=== PATIENT | female | born 1985 | race Caucasian/White ===

== ENCOUNTER 2019-06-03 08:11 | Emergency (ER) | payer OTHER ==
[~2019-06-03] VITALS: Ht 157.5 cm; Wt 59.4 kg
== END 2019-06-03 17:22 | disposition home or self-care (01) ==
LOC: ER 08:11
DX: K62.5 Hemorrhage of anus and rectum (principal)

== ENCOUNTER 2019-10-21 08:15 | Emergency (ER) | payer OTHER ==
[~2019-10-21] VITALS: Ht 157.5 cm; Wt 54.9 kg
[2019-10-21] MEDS ORDERED: CONCEPT DHA CA1 EACH PO (12:17)
== END 2019-10-21 12:45 | disposition home or self-care (01) ==
LOC: ER 08:15
DX: O20.0 Threatened abortion (principal); O36.80X1 Pregnancy with inconclusive fetal viability, fetus 1

== ENCOUNTER 2019-10-23 07:57 | Outpatient (CLI) | payer OTHER ==
[~2019-10-23 07:57] MED LIST: CONCEPT DHA CA1 EACH PO
== END 2019-10-23 16:38 | disposition home or self-care (01) ==
LOC: LAB 07:57
DX: Z00.00 Encounter for general adult medical examination without abnormal findings (principal)

== ENCOUNTER 2023-02-21 09:58 | Outpatient (CLI) | payer OTHER ==
[~2023-02-21 09:58] MED LIST changes: +FOLIC ACID0.8 M1 PO; +VITAL-D RX TAB1 EACH PO
== END 2023-02-21 11:25 | disposition home or self-care (01) ==
LOC: PRENATAL 09:58
PROVIDERS: ATTEND Obstetrics & Gynecology Maternal & Fetal Medicine
DX: O36.80X0 Pregnancy with inconclusive fetal viability, not applicable or unspecified (principal); O09.529 Supervision of elderly multigravida, unspecified trimester; O34.219 Maternal care for unspecified type scar from previous cesarean delivery; Z3A.11 11 weeks gestation of pregnancy

== ENCOUNTER 2023-04-24 08:09 | Outpatient (CLI) | payer OTHER | END 2023-04-24 10:31 | disposition home or self-care (01) | LOC: PRENATAL 08:09 | PROVIDERS: ATTEND Obstetrics & Gynecology Maternal & Fetal Medicine | DX: O35.3XX0 Maternal care for (suspected) damage to fetus from viral disease in mother, not applicable or unspecified (principal); O09.529 Supervision of elderly multigravida, unspecified trimester; O99.891 Other specified diseases and conditions complicating pregnancy; O34.219 Maternal care for unspecified type scar from previous cesarean delivery; Z14.8 Genetic carrier of other disease; O44.00 Complete placenta previa NOS or without hemorrhage, unspecified trimester; Z3A.20 20 weeks gestation of pregnancy ==

== ENCOUNTER 2023-05-30 07:18 | Outpatient (CLI) | payer OTHER | END 2023-05-30 07:36 | disposition home or self-care (01) | LOC: LAB 07:18 | PROVIDERS: ATTEND Internal Medicine Hematology & Oncology | DX: D50.8 Other iron deficiency anemias (principal); I10 Essential (primary) hypertension; R74.02 Elevation of levels of lactic acid dehydrogenase [LDH]; K76.89 Other specified diseases of liver; D51.8 Other vitamin B12 deficiency anemias; D68.8 Other specified coagulation defects; D69.1 Qualitative platelet defects; D68.00 Von Willebrand disease, unspecified; D66 Hereditary factor VIII deficiency; D68.01 Von Willebrand disease, type 1; D51.3 Other dietary vitamin B12 deficiency anemia ==

== ENCOUNTER 2023-08-02 08:25 | Outpatient (CLI) | payer OTHER | END 2023-08-02 08:49 | disposition home or self-care (01) | LOC: PRENATAL 08:25 | PROVIDERS: ATTEND Obstetrics & Gynecology Maternal & Fetal Medicine | DX: O26.849 Uterine size-date discrepancy, unspecified trimester (principal); O09.529 Supervision of elderly multigravida, unspecified trimester; O99.891 Other specified diseases and conditions complicating pregnancy; O34.219 Maternal care for unspecified type scar from previous cesarean delivery; O36.8199 Decreased fetal movements, unspecified trimester, other fetus; O40.1XX0 Polyhydramnios, first trimester, not applicable or unspecified; O99.019 Anemia complicating pregnancy, unspecified trimester; Z3A.34 34 weeks gestation of pregnancy ==

== ENCOUNTER 2023-08-22 14:31 | Outpatient (CLI) | payer OTHER | END 2023-08-22 14:32 | disposition home or self-care (01) | LOC: PRENATAL 14:31 | PROVIDERS: ATTEND Obstetrics & Gynecology Maternal & Fetal Medicine | DX: O26.849 Uterine size-date discrepancy, unspecified trimester (principal); O36.8199 Decreased fetal movements, unspecified trimester, other fetus; O09.529 Supervision of elderly multigravida, unspecified trimester; O99.891 Other specified diseases and conditions complicating pregnancy; O34.219 Maternal care for unspecified type scar from previous cesarean delivery; O40.1XX0 Polyhydramnios, first trimester, not applicable or unspecified; O99.019 Anemia complicating pregnancy, unspecified trimester; Z3A.37 37 weeks gestation of pregnancy ==

== ENCOUNTER 2023-11-01 08:25 | Outpatient (CLI) | payer OTHER ==
[2023-11-01 09:28] LABS: HEMATOCRIT 38.4 % (36.0-45.00); HEMOGLOBIN 12.9 g/dL (12.0-15.00); MEAN CELL VOLUME 88.5 fL (80.00-100.00); MEAN CORPUSCULAR HEMOGLOBIN 29.8 pg (27.00-32.0); MEAN CORPUSCULAR HGB CONC 33.7 g/dl (32.0-36.0); PLATELET COUNT 299 K/uL (150-450); RED BLOOD COUNT 4.34 M/uL (4.00-6.00); RED CELL DISTRIBUTION WIDTH 14.8 % (11.5-14.5)
[2023-11-01 09:58] LABS: % SATURACION 38.5 % (15-50); ALBUMIN 3.9 gm/dL (3.4-5.0); BILIRUBIN TOTAL 1.09 mg/dL (0.3-1.2); CREATININE SERUM 0.69 mg/dL (0.55-1.02); FERRITIN 24.6 NG/ML (8-252); GFR 95.22; GLOBULINA 3.4 G/DL (2.4-3.5); POTASSIUM 3.77 mEq/L (3.5-5.1); TOTAL PROTEIN 7.3 gm/dL (6.4-8.2)
[2023-11-01 10:08] LABS: INR 1.09; PARTIAL THROMBOPLASTIN TIME 28.7 SECONDS (22.0-34.0); PROTHROMBIN TIME 11.4 SECONDS (9.0-11.5)
[2023-11-01 10:15] LABS: FOLIC ACID > 20.00 ng/ml (4.78-20)
[2023-11-01 10:44] LABS: COL EPI 150 SECONDS (82-175)
[2023-11-02 10:08] LABS: TRANSFERIN 221 mg/dL (192-364)
== END 2023-11-01 08:26 | disposition home or self-care (01) ==
LOC: LAB 08:25
PROVIDERS: ATTEND Internal Medicine Hematology & Oncology
DX: D68.1 Hereditary factor XI deficiency (principal); D51.3 Other dietary vitamin B12 deficiency anemia; O00.01 Abdominal pregnancy with intrauterine pregnancy; D50.8 Other iron deficiency anemias; K76.89 Other specified diseases of liver; D51.1 Vitamin B12 deficiency anemia due to selective vitamin B12 malabsorption with proteinuria

== ENCOUNTER 2024-09-25 09:15 | Outpatient (CLI) | payer OTHER ==
[2024-09-25 10:10] LABS: HEMATOCRIT 38.4 % (36.0-45.00); HEMOGLOBIN 12.9 g/dL (12.0-15.00); MEAN CELL VOLUME 90.5 fL (80.00-100.00); MEAN CORPUSCULAR HEMOGLOBIN 30.3 pg (27.00-32.0); MEAN CORPUSCULAR HGB CONC 33.4 g/dl (32.0-36.0); PLATELET COUNT 351 K/uL (150-450); RED BLOOD COUNT 4.25 M/uL (4.00-6.00); RED CELL DISTRIBUTION WIDTH 13.2 % (11.5-14.5)
[2024-09-25 10:30] LABS: INR 1.03; PARTIAL THROMBOPLASTIN TIME 27.3 SECONDS (22.0-34.0); PROTHROMBIN TIME 11.2 SECONDS (9.0-11.5)
[2024-09-25 10:49] LABS: COL EPI 80 SECONDS (82-175)
[2024-09-25 11:07] LABS: % SATURACION 28.9 % (15-50); BILIRUBIN TOTAL 0.83 mg/dL (0.3-1.2); CREATININE SERUM 0.65 mg/dL (0.55-1.02); FERRITIN 14.3 NG/ML (8-252); GFR 101.47; GLOBULINA 3.3 G/DL (2.4-3.5); POTASSIUM 4.28 mEq/L (3.5-5.1); T4 FREE 0.96 NG/ML (0.76-1.46); TOTAL PROTEIN 7.3 gm/dL (6.4-8.2); TSH 0.789 uIU/mL (0.358-3.74)
[2024-09-25 11:45] LABS: FOLIC ACID 19.55 ng/ml (4.78-20); VITAMIN D3 25 HYDROXY 18.27 ng/ml (30-120)
== END 2024-09-25 09:27 | disposition home or self-care (01) ==
LOC: LAB 09:15
PROVIDERS: ATTEND Internal Medicine Hematology & Oncology
DX: D68.01 Von Willebrand disease, type 1 (principal); D50.8 Other iron deficiency anemias; I10 Essential (primary) hypertension; R74.02 Elevation of levels of lactic acid dehydrogenase [LDH]; K76.89 Other specified diseases of liver; E55.9 Vitamin D deficiency, unspecified; E03.8 Other specified hypothyroidism; D68.8 Other specified coagulation defects; D69.1 Qualitative platelet defects; D51.3 Other dietary vitamin B12 deficiency anemia

== ENCOUNTER → 2025-05-30 10:23 | Outpatient (CLI) | payer OTHER ==
[2025-05-30 11:18] LABS: BASO % 0.7 % (0.1-1.2); EOS # 0.10 (0.04-0.54); EOS % 1.4 % (0.7-7.0); LYMPH # 2.06 (1.18-3.74); LYMPH % 29.4 % (19.3-53.1); MEAN PLATELET VOLUME 9.80 fl (9.4-12.4); MONO # 0.37 (0.24-0.82); MONO % 5.3 % (4.7-12.5); NEUT # 4.41 (1.56-6.13); NEUT % 62.9 % (34.0-71.1); RED CELL DISTRIBUTION WIDTH 12.2 % (11.6-14.4)
[2025-05-30 11:39] LABS: INR 1.01
[2025-05-30 12:08] LABS: % SATURACION 17.1 % (15-50); ALT/SGPT 15.0 U/L (12-78); AST/SGOT 9.0 U/L (15-37); BILIRUBIN TOTAL 0.59 mg/dL (0.3-1.2); BUN CREA RATIO 16.0 (7.0-25.0); CREATININE SERUM 0.69 mg/dL (0.55-1.02); FE 54.0 ug/dl (50-170); GFR 94.72; GLOBULINA 3.1 G/DL (2.4-3.5); GLUCOSE FASTING 84.0 mg/dL (65-100); LDH 114.0 U/L (84-246); OSMOLALITY SERUM 280.0 MOSM/KG (275-295)
[2025-05-30 13:20] LABS: COL ADP 103.0 SECONDS (56-102); COL EPI 173.0 SECONDS (82-175)
[2025-05-30 13:50] LABS: FOLIC ACID 19.61 ng/ml (4.78-20); VITAMIN D3 25 HYDROXY 27.92 ng/ml (30-120)
[2025-06-02 13:12] LABS: FACTOR VIII ACTIVITY 76 % (56-140); VON WILLERBRAND ACTIVITY 55 % (50-200); VON WILLERBRAND ANTIGEN 52 % (50-200)
== END | disposition home or self-care (01) ==
LOC: LAB 10:23
PROVIDERS: ATTEND Internal Medicine Hematology & Oncology
DX: D68.01 Von Willebrand disease, type 1 (principal); D50.8 Other iron deficiency anemias; D51.3 Other dietary vitamin B12 deficiency anemia; D68.8 Other specified coagulation defects; I10 Essential (primary) hypertension; R74.02 Elevation of levels of lactic acid dehydrogenase [LDH]; K76.89 Other specified diseases of liver; E55.9 Vitamin D deficiency, unspecified